=== PATIENT | female | born 1965 | race Caucasian/White ===

== ENCOUNTER → 2016-11-22 | Outpatient (CLI) | payer BC, OTHER ==
[~2016-11-22] VITALS: Ht 170.2 cm; Wt 117.9 kg
[~2016-11-22] MED LIST: AMLO10TA2 PO; BUDE3CAP PO; CALC600T21 PO; FARX1TAB2 PO; JANU100T PO; LETR2.5T PO; LEVO175T2 PO; LEVO200T4 PO; LEVO88TA3 PO; LIAL1.2T PO; LIDOCAINE 2% INJ 100 MG/5 ML SDV (FOR ANES.) As Ordered ONE; MULT1TAB15 PO; NS 1,000 ML IV SCH; OMEP40CA2 PO; PRAM0.252 PO; PROPOFOL 200 MG/20 ML VIAL As Ordered ONE; RABE1TAB PO; SPIR100T PO; TOPR50TA PO; VALS1TAB47 PO; VENL75TA2 PO
--- NOTE | 2016-11-22 13:17 | ROOR ---
Patient Name: Anabel Helms Procedure Date: 11/22/2016 12:36 PM Date of : 1965 Age: 51 Room: [facility] Gender: Female Note Status: Finalized Procedure: Colonoscopy to Cecum + ileoscopy + Cold Snare Polypectomy + Biopsies Indications: High risk colon cancer surveillance: Ulcerative colitis Providers: Darin Valentin MD Referring MD: Kalina Sarah DO Requesting Provider: Medicines: Monitored Anesthesia Care Complications: No immediate complications. Procedure: Pre-Anesthesia Assessment: - The heart rate, respiratory rate, oxygen saturations, blood pressure, adequacy of pulmonary ventilation, and response to care were monitored throughout the procedure. The Colonoscope was introduced through the anus and advanced to the cecum, identified by appendiceal orifice and ileocecal valve. The colonoscopy was performed without difficulty. The patient tolerated the procedure well. The quality of the bowel preparation was good. Findings: The perianal and digital rectal examinations were normal. Non-bleeding internal hemorrhoids were found during retroflexion. The hemorrhoids were small and Grade I (internal hemorrhoids that do not prolapse). A medium polyp was found at 45 cm proximal to the anus. The polyp was sessile. The polyp was removed with a cold snare. Resection and retrieval were complete. To prevent bleeding after the polypectomy, one hemostatic clip was successfully placed (MR conditional). There was no bleeding at the end of the procedure. The exam was otherwise without abnormality on direct and retroflexion views. Background biopsies were taken for histology with a cold forceps from the ascending colon and rectosigmoid colon. These biopsy specimens were sent to Pathology. The exam was otherwise without abnormality. The terminal ileum appeared normal. Impression: - Non-bleeding internal hemorrhoids. - One medium polyp at 45 cm proximal to the anus, removed with a cold snare. Resected and retrieved. Clip (MR conditional) was placed. - The examination was otherwise normal on direct and retroflexion views. - The examination was otherwise normal. - The examined portion of the ileum was normal. - Background biopsies were taken from the ascending colon and rectosigmoid colon. Recommendation: - Patient has a contact number available for emergencies. The signs and symptoms of potential delayed complications were discussed with the patient. Return to normal activities tomorrow. Written discharge instructions were provided to the patient. - High fiber diet. - Discharge patient to home. - Continue present medications. - Await pathology results. - Telephone GI clinic for pathology results in 1 week. - Repeat colonoscopy in 5 years for surveillance based on pathology results. - Return to referring physician. - The findings and recommendations were discussed with the patient's family. Darin Valentin MD Darin Valentin MD 11/22/2016 1:17:29 PM This report has been signed electronically. Number of Addenda: 0 Note Initiated On: 11/22/2016 12:36 PM Estimated Blood Loss: Estimated blood loss: none.
[2016-11-22 13:35] VITALS: BP 144/85
== END | disposition home or self-care (01) ==
LOC: M OPP 11:50
PROVIDERS: ATTEND Internal Medicine Gastroenterology
DX: Z12.11 Encounter for screening for malignant neoplasm of colon (principal); K64.0 First degree hemorrhoids; D12.5 Benign neoplasm of sigmoid colon; K51.90 Ulcerative colitis, unspecified, without complications; I10 Essential (primary) hypertension; E78.00 Pure hypercholesterolemia, unspecified; E11.9 Type 2 diabetes mellitus without complications; D64.9 Anemia, unspecified; R06.83 Snoring; Z79.899 Other long term (current) drug therapy

== ENCOUNTER → 2017-01-30 | Outpatient (REF) | payer BC, OTHER ==
[~2017-01-30] MED LIST changes: -LIDOCAINE 2% INJ 100 MG/5 ML SDV (FOR ANES.) As Ordered ONE; -NS 1,000 ML IV SCH; -PROPOFOL 200 MG/20 ML VIAL As Ordered ONE
[2017-01-30 20:09] LABS: PERCENT SATURATION 7.1 % (13.2-37.4)
== END ==
LOC: M LAB REF 16:37
PROVIDERS: ATTEND Internal Medicine
DX: D64.9 Anemia, unspecified (principal)

== ENCOUNTER → 2017-03-08 | Outpatient (CLI) | payer OTHER, BC ==
--- NOTE | 2017-03-08 11:06 | ECGEPIP ---
Stationary ECG Study [facility] Test Date: 2017-03-08 Pat Name: LESLEY RIOJAS Department: Room: - Gender: F Entry Level [employer] Developer: : 1965 Requested By: Vipin Longoria Order Number: [id number] Reading MD: Lise Su Measurements Intervals [place] Rate: 91 P: 53 [place]: 143 QRS: -5 QRSD: 101 T: 23 QT: 367 QTc: 453 Interpretive Statements SINUS RHYTHM POSSIBLE LEFT ATRIAL ENLARGEMENT PRWP NO PRIOR Electronically Signed On 03-08-2017 11:06:35 EDT by Lise Su
[2017-03-08 11:20] LABS: ANION GAP 12 MEQ/L (8-16); BLOOD UREA NITROGEN 17 MG/DL (7-18); CALCIUM LEVEL 9.1 MG/DL (8.5-10.1); CARBON DIOXIDE LEVEL 26 MEQ/L (21-32); CHLORIDE LEVEL 102 MEQ/L (98-107); CREATININE FOR GFR 0.86 MG/DL (0.55-1.02); GLOMERULAR FILTRATION RATE > 60.0 (>51); GLUCOSE, FASTING 219 MG/DL (70-105); POTASSIUM SERUM 3.8 MEQ/L (3.5-5.1); SODIUM LEVEL 140 MEQ/L (136-145)
== END ==
LOC: M LAB 10:21
PROVIDERS: ATTEND Orthopaedic Surgery
DX: Z01.818 Encounter for other preprocedural examination (principal)

== ENCOUNTER → 2017-05-25 | Outpatient (REF) | payer OTHER ==
[~2017-05-25] MED LIST changes: -CALC600T21 PO; +CALC600T60 PO; -FARX1TAB2 PO; +FARX1TAB3 PO; -LETR2.5T PO; +LETR2.5T2 PO
== END ==
LOC: M LAB REF 13:36
PROVIDERS: ATTEND Internal Medicine
DX: D64.9 Anemia, unspecified (principal)

== ENCOUNTER → 2017-08-14 | Outpatient (CLI) | payer SELFPAY ==
--- NOTE | 2017-08-14 20:18 | REP ---
RIGHT HAND, COMPLETE: 08/14/2017. Clinical history: Right hand contusion, fell at work yesterday. Findings: The four views of the hand show minor soft tissue swelling over the dorsal aspect of the wrist and hand on the lateral view. Distal radius and ulna intact. There is an old avulsion off the distal tip of the ulnar styloid with smooth margins. Carpal bones and their joint spaces grossly intact. Metacarpals and phalanges are without fracture. There is some degenerative changes at IP joints diffusely. No erosive change, subluxation or dislocation. Impression: 1. Some soft tissue swelling dorsal aspect of the hand and wrist without visible or acute fracture, avulsion or subluxation. 2. Degenerative changes at the IP joints and first MCP joint. 3. Old avulsion off the ulnar styloid with smooth regular margins. Signed by Aleksey Silva MD 08/14/2017 08:31 P
== END ==
LOC: M ADAMS 17:46
PROVIDERS: ATTEND Physician Assistant Medical
DX: S60.221A Contusion of right hand, initial encounter (principal); X58.XXXA Exposure to other specified factors, initial encounter; Y93.9 Activity, unspecified; Y92.9 Unspecified place or not applicable; Y99.8 Other external cause status

== ENCOUNTER → 2017-09-03 | Outpatient (CLI) | payer BC, OTHER ==
--- NOTE | 2017-09-03 14:12 | REP ---
UNILATERAL MAMMOGRAM LEFT BREAST: Unilateral mammogram left breast performed in the MLO and CC projections and compared to prior studies most recent of which is 09/01/2016. Patient has a history of right breast cancer and mastectomy in 2007. Left breast demonstrates mild residual fibroglandular density which is stable. There is no new mass or clustered microcalcifications. IMPRESSION: BI-RADS/ACR category 2 mammogram. Benign finding(s). Routine annual screening mammography (for women over age 40). ACR 2 benign. No new findings left breast in this patient status post right mastectomy. Suggest followup mammogram in 1 year. This mammogram was interpreted with the aid of an FDA-approved computer-aided detection system. The patient states she/he had a clinical breast exam in 07/2017. The patient letter being requested is M1. Signed by Cristian Carroll MD 09/03/2017 04:20 P
== END ==
LOC: M RAD 12:58
PROVIDERS: ATTEND Internal Medicine
DX: Z12.31 Encounter for screening mammogram for malignant neoplasm of breast (principal)

== ENCOUNTER → 2018-03-19 | Outpatient (REF) | payer BC, OTHER ==
[2018-03-19 13:42] LABS: IRON (FE) 66 UG/DL (50-170); PERCENT SATURATION 16.5 % (13.2-45.0); TOTAL IRON BINDING CAPACITY 401 UG/DL (250-450)
[2018-03-19 16:01] LABS: VITAMIN B12 LEVEL 351 PG/ML (247-911)
== END ==
LOC: M LAB REF 12:41
DX: D50.9 Iron deficiency anemia, unspecified (principal); G62.9 Polyneuropathy, unspecified
CPT/HCPCS: 83550

== ENCOUNTER → 2018-09-06 | Outpatient (CLI) | payer BC, OTHER | LOC: M RAD 10:49 | DX: Z12.31 Encounter for screening mammogram for malignant neoplasm of breast (principal); R92.1 Mammographic calcification found on diagnostic imaging of breast; Z85.3 Personal history of malignant neoplasm of breast; Z90.11 Acquired absence of right breast and nipple | CPT/HCPCS: 77067 ==

== ENCOUNTER → 2019-05-05 | Outpatient (REF) | payer OTHER ==
[~2019-05-05] MED LIST changes: -AMLO10TA2 PO; +AMLO10TA5 PO; -PRAM0.252 PO; +PRAM0.255 PO; -SPIR100T PO; +SPIR100T3 PO; -VALS1TAB47 PO; +VALS1TAB67 PO
== END ==
LOC: M LAB REF 17:16
PROVIDERS: ATTEND Internal Medicine
DX: D50.9 Iron deficiency anemia, unspecified (principal)

== ENCOUNTER → 2019-08-08 | Outpatient (REF) | payer BC, OTHER ==
[~2019-08-08] MED LIST changes: +MONT10TA2 PO; +MULTTAB13 PO; -OMEP40CA2 PO; +OMEP40CA97 PO; +PRAM0.754 PO
[2019-08-08 13:58] LABS: FREE T4 1.22 NG/DL (0.76-1.46); THYROGLOBULIN ANTIBODY 15.3 U/ML (<60.0); THYROID STIMULATING HORMONE 2.85 uIU/ML (0.358-3.740)
[2019-08-09 14:22] LABS: THRYOGLOBULIN ANTIBODIES (ATA) < 1.0 IU/mL (0.0-0.9); THYROGLOBULIN QUANTITATIVE < 0.1 ng/mL (1.5-38.5)
== END ==
LOC: M LABDRWAD 13:06
PROVIDERS: ATTEND Internal Medicine Endocrinology, Diabetes & Metabolism
DX: C73 Malignant neoplasm of thyroid gland (principal)

== ENCOUNTER → 2019-10-21 | Outpatient (REF) | payer OTHER ==
[2019-10-21 13:14] LABS: CREATININE, URINE 61.8 MG/DL; CREATININE,RANDOM URINE 61.8 MG/DL; MALB URINE SIEMENS 10.2 MG/L; MAU/CREAT RATIO 16.5 MCG/MG (0.0-30.0)
== END ==
LOC: M LABDRWAD 12:15
PROVIDERS: ATTEND Nurse Practitioner Family
DX: E11.65 Type 2 diabetes mellitus with hyperglycemia (principal)

== ENCOUNTER → 2020-03-23 | Outpatient (REF) | payer OTHER ==
[~2020-03-23] MED LIST changes: -MONT10TA2 PO; +MONT10TA4 PO
== END ==
LOC: M LAB REF 16:09
PROVIDERS: ATTEND Internal Medicine
DX: E78.2 Mixed hyperlipidemia (principal)

== ENCOUNTER → 2020-04-05 | Outpatient (CLI) | payer BC ==
--- NOTE | 2020-04-05 15:05 | REPMRS ---
Patient History The patient states she had a clinical breast exam in March 2020.Patient has history of cancer in the right breast at age 42, has history of other cancer, and is nulliparous. No known family history of cancer. Malignant mastectomy of the right breast, 2007. Took tamoxifen for 10 years. Digital Woman Screen Mammo: April 05, 2020 - Exam #: [id number] Bilateral CC and MLO view(s) were taken. Technologist: Isi Frances, Technologist Prior study comparison: September 06, 2018, bilateral digital woman screen mammo, performed at [facility]. September 03, 2017, bilateral digital mammo screening bilat, performed at [facility]. September 01, 2016, bilateral digital mammo screening bilat, performed at [facility]. FINDINGS: There are scattered fibroglandular densities. There has been no change in the appearance of the left breast parenchyma in the interval since the prior examination. No mass, architectural distortion, or microcalcific grouping has developed. No suspicious finding. 3-D tomosynthesis shows no additional findings. Assessment: BI-RADS/ACR category 2 mammogram. Benign Findings. Recommendation Routine screening mammogram of the left breast in 1 year. This mammogram was interpreted with the aid of an FDA-approved computer-aided dectection system. Electronically Signed By: Zaire Doss MD 04/05/20 [id number]
== END ==
LOC: M WHC 13:49
PROVIDERS: ATTEND Internal Medicine
DX: Z12.31 Encounter for screening mammogram for malignant neoplasm of breast (principal); Z85.3 Personal history of malignant neoplasm of breast

== ENCOUNTER → 2020-08-04 | Outpatient (REF) | payer OTHER ==
[~2020-08-04] MED LIST changes: -AMLO10TA5 PO; +AMLO1TAB25 PO
[2020-08-04 17:57] LABS: ALBUMIN 3.8 GM/DL (3.2-5.2); ALT/SGPT 29 U/L (12-78); BILIRUBIN,TOTAL 0.3 MG/DL (0.2-1.0); BLOOD UREA NITROGEN 18 MG/DL (7-18); CALCIUM LEVEL 9.9 MG/DL (8.5-10.1); CARBON DIOXIDE LEVEL 31 MEQ/L (21-32); CHLORIDE LEVEL 100 MEQ/L (98-107); CREATININE FOR GFR 1.09 MG/DL (0.55-1.30); FREE T4 1.25 NG/DL (0.76-1.46); GLOMERULAR FILTRATION RATE 55.5 (>51); GLUCOSE, FASTING 177 MG/DL (70-100); POTASSIUM SERUM 4.5 MEQ/L (3.5-5.1); SODIUM LEVEL 138 MEQ/L (136-145); THYROGLOBULIN ANTIBODY < 15.0 U/ML (<60.0); TOTAL PROTEIN 7.6 GM/DL (6.4-8.2)
[2020-08-06 12:07] LABS: THRYOGLOBULIN ANTIBODIES (ATA) < 1.0 IU/mL (0.0-0.9); THYROGLOBULIN QUANTITATIVE < 0.1 ng/mL (1.5-38.5)
== END ==
LOC: M LABDRWAD 16:12
PROVIDERS: ATTEND Nurse Practitioner Family
DX: E89.0 Postprocedural hypothyroidism (principal); Z85.850 Personal history of malignant neoplasm of thyroid

== ENCOUNTER → 2020-08-30 | Outpatient (REF) | payer OTHER ==
[2020-08-30 17:14] LABS: PERCENT SATURATION 17.1 % (13.2-45.0)
[2020-09-01 08:09] LABS: LDL DIRECT 89 mg/dL (0-99)
== END ==
LOC: M LAB REF 16:06
PROVIDERS: ATTEND Internal Medicine
DX: D50.9 Iron deficiency anemia, unspecified (principal); E78.2 Mixed hyperlipidemia

== ENCOUNTER → 2020-11-19 | Outpatient (REF) | payer OTHER ==
[~2020-11-19] MED LIST changes: -MONT10TA4 PO; +MONT5TAB2 PO
[2020-11-19 17:51] LABS: CREATININE, URINE 46.5 MG/DL; MALB URINE SIEMENS 5.6 MG/L
== END ==
LOC: M LAB REF 16:42
PROVIDERS: ATTEND Nurse Practitioner Family
DX: E11.65 Type 2 diabetes mellitus with hyperglycemia (principal)

== ENCOUNTER → 2021-07-04 | Outpatient (REF) | payer OTHER ==
[~2021-07-04] MED LIST changes: +MONT10TA10 PO; -MONT5TAB2 PO; +OMEP40CA4 PO; -OMEP40CA97 PO; -RABE1TAB PO; +RABE1TAB4 PO
[2021-07-05 11:22] LABS: BACTERIA, URINE AUTO 1+ (NEGATIVE); MUCUS, URINE SMALL (NEGATIVE); RBC, URINE AUTO 27 /HPF (0-3); SQUAMOUS EPITHELIAL CELL UR AU 4 /HPF (0-6); WBC, URINE AUTO 125 /HPF (0-3)
== END ==
LOC: M LAB REF 11:05
PROVIDERS: ATTEND Physician Assistant Medical
DX: N39.0 Urinary tract infection, site not specified (principal)

== ENCOUNTER → 2021-08-23 | Outpatient (CLI) | payer BC, OTHER ==
--- NOTE | 2021-08-23 11:08 | REPMRS ---
Patient History The patient states she had a clinical breast exam on 2020. Patient has history of cancer in the right breast at age 42, has history of other cancer, and is nulliparous. No known family history of cancer. Malignant mastectomy of the right breast, 2007. Took tamoxifen for 10 years. Patient states no breast complaints today. Patient has signed MRS History Sheet. Digital Woman Screen Mammo: August 23, 2021 - Exam #: [id number] Bilateral CC and MLO view(s) were taken. Technologist: Anabel Cobb, Loading Unit Tool Setter Prior study comparison: April 05, 2020, bilateral digital woman screen mammo performed at [facility]. September 06, 2018, bilateral digital woman screen mammo, performed at [facility]. FINDINGS: There are scattered fibroglandular densities. Screening. Digital screening (2D) mammography was performed bilaterally in the CC and MLO projections. Additionally, breast tomosynthesis (3D mammography) was performed bilaterally in the CC and MLO projections. Todays exam was compared to the prior exam/exams. By history, the patient has no complaints of a palpable breast abnormality or other significant breast complaints. The breasts are unchanged in size and shape. There are no janene-soft tissue densities or spiculated masses. There is no internal architectural distortion.Once again, stable benign appearing calcifications are seen. There are no suspicious janene-calcific clusters. Skin thickening or nipple retraction is not present. IMPRESSION: BI-RADS Category 2- Benign Findings. There is no evidence of malignant alteration of the breasts. Followup examination recommended in one year. This mammogram was read with the assistance of [facility],an FDA approved computer aided detection system for mammography. The Volpara volumetric breast density category is B, there are scattered areas of fibroglandular densities. Negative x-ray reports should not delay surgical consultation if a dominant or clinically suspicious mass is present. Not all breast cancers can be identified by mammography. Therefore, we recommend that you continue to perform regular breast self-examination and physical examination and then promptly contact your physician of any concerns or changes. Adenosis and dense breasts may obscure an underlying neoplasm. Assessment: BI-RADS/ACR category 2 mammogram. Benign Findings. Recommendation Routine screening mammogram of both breasts in 1 year. Electronically Signed By: Reid Lindsey, DO 08/23/21 1107
== END ==
LOC: M WHC 09:50
PROVIDERS: ATTEND Physician Assistant Medical
DX: Z12.31 Encounter for screening mammogram for malignant neoplasm of breast (principal); Z85.3 Personal history of malignant neoplasm of breast; Z90.11 Acquired absence of right breast and nipple; R92.1 Mammographic calcification found on diagnostic imaging of breast

== ENCOUNTER → 2021-08-26 | Outpatient (REF) | payer BC, OTHER ==
[2021-08-28 08:30] LABS: LDL DIRECT 83 mg/dL (0-99)
== END ==
LOC: M LAB REF 16:32
PROVIDERS: ATTEND Internal Medicine
DX: E78.2 Mixed hyperlipidemia (principal)

== ENCOUNTER → 2022-03-09 | Outpatient (CLI) | payer BC, OTHER ==
[~2022-03-09] MED LIST changes: -MONT10TA10 PO; +MONT10TA97 PO
[2022-03-09 13:23] LABS: CHOLESTEROL LEVEL 177 MG/DL (<200); CHOLESTEROL RISK RATIO 5.363 (<5); FREE T4 1.05 NG/DL (0.76-1.46); HDL CHOLESTEROL 33 MG/DL (>40); NON-HDL-C 144 MG/DL; TRIGLYCERIDES LEVEL 658 MG/DL (<150)
== END ==
LOC: M ADAMS 09:03
PROVIDERS: ATTEND Nurse Practitioner Family
DX: E78.2 Mixed hyperlipidemia (principal); E89.0 Postprocedural hypothyroidism

== ENCOUNTER → 2022-06-28 | Outpatient (CLI) | payer BC, OTHER | LOC: M WUC 14:49 | PROVIDERS: ATTEND Internal Medicine | DX: R07.81 Pleurodynia (principal); Z53.9 Procedure and treatment not carried out, unspecified reason ==

== ENCOUNTER → 2022-06-28 | Outpatient (CLI) | payer BC, OTHER | LOC: M WUC 14:37 | PROVIDERS: ATTEND Internal Medicine | DX: R07.81 Pleurodynia (principal) ==

== ENCOUNTER → 2022-08-30 | Outpatient (CLI) | payer BC, OTHER | LOC: M WHC 16:01 | PROVIDERS: ATTEND Internal Medicine | DX: Z12.31 Encounter for screening mammogram for malignant neoplasm of breast (principal); Z86.000 Personal history of in-situ neoplasm of breast; Z90.11 Acquired absence of right breast and nipple ==

== ENCOUNTER → 2022-11-13 | Outpatient (REF) | payer BC, OTHER ==
[2022-11-13 17:03] LABS: PERCENT SATURATION 12.6 % (13.2-45.0)
[2022-11-13 17:07] LABS: FERRITIN 70.2 NG/ML (7.3-270.7)
[2022-11-15 08:09] LABS: LDL DIRECT 96 mg/dL (0-99)
== END ==
LOC: M LAB REF 16:03
PROVIDERS: ATTEND Internal Medicine
DX: N91.2 Amenorrhea, unspecified (principal)

== ENCOUNTER → 2023-05-14 | Outpatient (REF) | payer OTHER, BC ==
[2023-05-14 13:55] LABS: PERCENT SATURATION 18.4 % (13.2-45.0)
[2023-05-14 13:57] LABS: FERRITIN 74.6 NG/ML (7.3-270.7)
[2023-05-15 08:22] LABS: LDL DIRECT 112 mg/dL (0-99)
== END ==
LOC: M LAB REF 12:29
PROVIDERS: ATTEND Internal Medicine
DX: D50.9 Iron deficiency anemia, unspecified (principal); E78.2 Mixed hyperlipidemia

== ENCOUNTER → 2023-08-31 | Outpatient (CLI) | payer BC, OTHER | LOC: M WHC 13:29 | PROVIDERS: ATTEND Internal Medicine | DX: Z12.31 Encounter for screening mammogram for malignant neoplasm of breast (principal); R92.322 Mammographic fibroglandular density, left breast; Z80.3 Family history of malignant neoplasm of breast; Z90.11 Acquired absence of right breast and nipple | CPT/HCPCS: 77067; G0279 ==

== ENCOUNTER → 2023-11-15 | Outpatient (CLI) | payer BC, OTHER | LOC: M WUC 10:14 | PROVIDERS: ATTEND Internal Medicine | DX: M25.50 Pain in unspecified joint (principal); I70.0 Atherosclerosis of aorta; R09.89 Other specified symptoms and signs involving the circulatory and respiratory systems ==

== ENCOUNTER → 2024-04-21 | Outpatient (REF) | payer OTHER, BC | LOC: M LAB REF 16:04 | PROVIDERS: ATTEND Internal Medicine | DX: E78.1 Pure hyperglyceridemia (principal) ==

== ENCOUNTER → 2024-09-02 | Outpatient (CLI) | payer BC | LOC: M WHC 06:49 | PROVIDERS: ATTEND Internal Medicine | DX: Z12.31 Encounter for screening mammogram for malignant neoplasm of breast (principal); Z90.11 Acquired absence of right breast and nipple; Z85.3 Personal history of malignant neoplasm of breast | CPT/HCPCS: 77067; G0279 ==

== ENCOUNTER → 2024-11-14 | Outpatient (REF) | payer OTHER ==
[2024-11-14 14:49] LABS: RSV AMPLIFICATION NEGATIVE (NEGATIVE)
== END ==
LOC: M LAB REF 13:26
PROVIDERS: ATTEND Internal Medicine
DX: R53.83 Other fatigue (principal); J06.9 Acute upper respiratory infection, unspecified

== ENCOUNTER → 2025-05-19 | Outpatient (REF) | payer OTHER ==
[~2025-05-19] MED LIST changes: -RABE1TAB4 PO; +RABE1TAB5 PO
[2025-05-19 19:12] LABS: IRON (FE) 53.0 UG/DL (50-170); PERCENT SATURATION 17.5 % (13.2-45.0)
== END ==
LOC: M LAB REF 17:40
PROVIDERS: ATTEND Internal Medicine
DX: E78.1 Pure hyperglyceridemia (principal); D50.9 Iron deficiency anemia, unspecified

== ENCOUNTER 2025-06-17 10:25 | Day surgery (SDC) | payer BC ==
[~2025-06-17] VITALS: Ht 167.6 cm; Wt 118.3 kg
[~2025-06-17 10:25] MED LIST changes: +EZET10TA21 PO; +FERR325T19 PO; +GABA-1171 PO; +GABA-1172 PO; +HYDR-3363 PO; +INSUH10VL SC; +SYNJ1TAB PO; +TOPR100T PO; +TOUJ1.2I SC; +TRUL0.5I SC
[2025-06-17] MEDS ORDERED: INSULIN LISPRO (NovoLOG) PER UNIT SC PRN (11:15)
[2025-06-17] MEDS ORDERED: DEXTROSE 50% 50 ML SYRINGE IV PRN (11:15)
[2025-06-17] MEDS ORDERED: GLUCOSE 4 GM CHEW PO PRN (11:15)
[2025-06-17] MEDS ORDERED: GLUCAGON INJ 1 MG VIAL SC PRN (11:15)
[2025-06-17] MEDS ORDERED: FEXO-193 PO (11:24)
[2025-06-17] MEDS ORDERED: IRBE150T27 PO (11:24)
[2025-06-17] MEDS ORDERED: LIDOCAINE 2% 100 MG/5 ML SDV (FOR ANES.) As Ordered ONE (12:02)
[2025-06-17] MEDS ORDERED: MIDAZOLAM INJ 2 MG/2 ML VIAL As Ordered ONE (12:04)
[2025-06-17] MEDS ORDERED: KETAMINE HCL 200 MG/20 ML VIAL As Ordered ONE (12:12)
[2025-06-17] MEDS ORDERED: LABETALOL 100 MG/20 ML VIAL As Ordered ONE (12:21)
[2025-06-17 12:33] VITALS: TEMP 98
[2025-06-17 12:59] VITALS: BP 117/68; O2SAT 95
== END 2025-06-17 13:11 | disposition home or self-care (01) ==
LOC: M OPP 10:25
PROVIDERS: ATTEND Internal Medicine Gastroenterology
DX: Z12.11 Encounter for screening for malignant neoplasm of colon (principal); K57.30 Diverticulosis of large intestine without perforation or abscess without bleeding; K64.0 First degree hemorrhoids; Z86.0100 Personal history of colon polyps, unspecified; K22.89 Other specified disease of esophagus; K44.9 Diaphragmatic hernia without obstruction or gangrene; R12 Heartburn; Z79.4 Long term (current) use of insulin; Z79.85 Long-term (current) use of injectable non-insulin antidiabetic drugs; Z79.899 Other long term (current) drug therapy
CPT/HCPCS: 43239; 45378; 88305; J1920; J2250

== ENCOUNTER 2025-08-17 14:11 | Emergency (ER) | payer BC ==
[~2025-08-17] VITALS: Ht 170.2 cm; Wt 116.3 kg
[~2025-08-17 14:11] MED LIST changes: -KETO-204 PO; -MIRA3350 PO
[2025-08-17 14:53] LABS: BASO # 0.1 10^3/uL (0.0-0.2); BASO % 1.0 % (0.0-1.0); EOS # 0.3 10^3/uL (0.0-0.5); EOS % 3.2 % (0.0-3.0); LYMPH # 2.5 10^3/uL (1.5-5.0); LYMPH % 28.3 % (24.0-44.0); MONO # 0.5 10^3/uL (0.0-0.8); MONO % 6.1 % (2.0-8.0); NEUTROPHILS # 5.4 10^3/uL (1.5-8.5); NEUTROPHILS % 61.2 % (36.0-66.0); PLATELET COUNT, AUTOMATED 238 10^3/uL (150-450)
[2025-08-17 15:14] LABS: KETONE, URINE AUTO RFX NEGATIVE (NEGATIVE); MUCUS, URINE RFX SMALL (NEGATIVE); NITRITE, URINE AUTO RFX NEGATIVE (NEGATIVE); RBC, URINE AUTO RFX 2 /HPF (0-3); SQUAM EPITHELIAL CELL UR AURFX 3 /HPF (0-6); WBC, URINE AUTO RFX 2 /HPF (0-3)
[2025-08-17 15:17] LABS: LEUKOCYTE ESTERASE UR AUTO RFX 1+ (NEGATIVE)
[2025-08-17 15:20] LABS: ALT/SGPT 35 U/L (7.0-40); AST/SGOT 38 U/L (<34); CALCIUM LEVEL 8.8 MG/DL (8.3-10.6); CARBON DIOXIDE LEVEL 27 MMOL/L (20-31); CHLORIDE LEVEL 102 MMOL/L (98-107); CREATININE FOR GFR 0.52 MG/DL (0.55-1.30); GLOMERULAR FILTRATION RATE > 90.0 (>45); POTASSIUM SERUM 4.3 MMOL/L (3.5-5.1); SODIUM LEVEL 140 MMOL/L (136-145)
[2025-08-17] MEDS: ONDANSETRON 4MG/2ML VIAL IV ONE (20:55)
[2025-08-17] MEDS: KETOROLAC 30 MG/ML 1 ML VIAL IV ONE (20:58)
[2025-08-17] MEDS ORDERED: KETO-204 PO (22:09)
[2025-08-17] MEDS ORDERED: MIRA3350 PO (22:09)
[2025-08-17 22:15] VITALS: BP 136/72; TEMP 97.6; O2SAT 97
== END 2025-08-17 22:22 | disposition home or self-care (01) ==
LOC: M ED 14:11
DX: K59.00 Constipation, unspecified (principal); N20.0 Calculus of kidney; E11.9 Type 2 diabetes mellitus without complications; E03.9 Hypothyroidism, unspecified; Z85.3 Personal history of malignant neoplasm of breast; Z79.4 Long term (current) use of insulin; Z79.899 Other long term (current) drug therapy
CPT/HCPCS: 74176; 80048; 80076; 81001; 83690; 85025; 87086; 96374; 96375; 99284; J1885; J2405

== ENCOUNTER → 2025-08-17 | Outpatient (REF) | payer OTHER ==
[~2025-08-17] MED LIST changes: -EZET10TA21 PO; +EZET10TA57 PO; +FEXO-193 PO; +IRBE150T27 PO; +KETO-204 PO; +MIRA3350 PO
== END ==
LOC: M LAB REF 14:15
DX: R10.9 Unspecified abdominal pain (principal)

== ENCOUNTER → 2025-08-27 | Outpatient (CLI) | payer BC, OTHER ==
[~2025-08-27] MED LIST changes: +ISOVUE-370 76% 100 ML VIAL ONE; +KETO-204 PO; +MIRA3350 PO
== END ==
LOC: M PLAIMG 14:06
DX: K86.9 Disease of pancreas, unspecified (principal); R10.31 Right lower quadrant pain
CPT/HCPCS: 74177; Q9967

== ENCOUNTER → 2025-08-31 | Outpatient (REF) | payer OTHER, BC ==
[~2025-08-31] MED LIST changes: -ISOVUE-370 76% 100 ML VIAL ONE
== END ==
LOC: M LAB REF 14:16
PROVIDERS: ATTEND Nurse Practitioner Family
DX: K86.9 Disease of pancreas, unspecified (principal)

== ENCOUNTER → 2025-09-02 | Outpatient (CLI) | payer BC ==
[~2025-09-02] MED LIST changes: +PROHANCE 279.3MG/ML 15ML VIAL As Ordered ONE; +PROHANCE 279.3MG/ML 5ML VIAL As Ordered ONE
== END ==
LOC: M RAD 16:21
DX: K86.1 Other chronic pancreatitis (principal); K86.89 Other specified diseases of pancreas
CPT/HCPCS: 74183; A9579

== ENCOUNTER → 2025-09-04 | Outpatient (CLI) | payer BC ==
[~2025-09-04] MED LIST changes: -PROHANCE 279.3MG/ML 15ML VIAL As Ordered ONE; -PROHANCE 279.3MG/ML 5ML VIAL As Ordered ONE
== END ==
LOC: M WHC 08:32
PROVIDERS: ATTEND Internal Medicine
DX: Z12.31 Encounter for screening mammogram for malignant neoplasm of breast (principal)